=== PATIENT | female | born 1970 | race African-American/Black ===

== ENCOUNTER 2020-06-02 11:29 | Emergency (ER) | payer OTHER ==
[2020-06-02 11:41] VITALS: BMI 29.8
--- NOTE | 2020-06-02 12:29 | PDOC ---
History of Present Illness - General Chief Complaint: Back Pain Stated Complaint: BACK PAIN Time Seen by Provider: 06/02/20 11:49 History Source: Patient Exam Limitations: No Limitations - History of Present Illness Initial Comments: 06/02/20 12:27 49F PMH HTN presenting for evaluation of 2 days of acutely worsened low back pain. Pt has had this back pain of the same character for a year now but now more severe. Denies trauma, falls, heavy lifting, or strain. Denies numbness, tingling, weakness, loss of bowel or bladder continence. Denies chest pain, palpitations, lightheadedness, dizziness, headache, vision/hearing changes. Takes losartan and lasix for HTN, took today, but not completely compliant. 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 Spencer. MACHO. Past History - Medical History Allergies/Adverse Reactions: Allergies Allergy/AdvReac Type Severity Reaction Status Date / Time No Known Allergies Allergy Verified 06/02/20 11:36 Home Medications: Ambulatory Orders Losartan/Hydrochlorothiazide [Losartan-Hctz 50-12.5 mg Tab] 1 each PO DAILY 06/02/20 - Reproductive History Is Patient Now?: No - Psycho-Social/Smoking History Smoking History: Never smoked Review of Systems - Review of Systems Comments:: 06/03/20 09:23 CONSTITUTIONAL: Denies F / C HEENT: Denies headache, lightheadedness, dizziness, changes in vision / hearing, diplopia, blurry vision, sore throat, rhinorrhea RESP: Denies SOB, cough, orthopnea, HERNANDEZ CARD: Denies chest pain, palpitations GI: Denies N / V / D, abdominal pain, bloody stool, inability to tolerate PO : Denies dysuria, hematuria, frequency NEURO: Denies numbness, tingling, weakness MSK: + back pain (acute on chronic) SKIN: Denies rashes *Physical Exam - Vital Signs Last Vital Signs Temp Pulse Resp BP Pulse Ox 90 20 217/115 H 99 06/02/20 11:38 06/02/20 11:38 06/02/20 12:05 06/02/20 11:38 - Physical Exam 06/03/20 09:23 VS: BP noted to be 210s/110s b/l GEN: Well appearing, NAD, comfortable. AAOx3. HEENT: NC/AT, EOMI, PERRL, CN II-XII grossly intact. No facial asymmetry. Normal voice. Supple neck w/ FROM. CV: S1/S2, RRR, no m/r/g LUNG: CTAB, no wheezes, crackles, rales, rhonchi GI: Soft, ndnt, +BS, no guarding, no rebound MSK: symmetric UE BPs. No LE edema. No obvious deformities of all extremities. SKIN: Warm, dry, no rashes appreciated. PSYCH: Normal mood and affect. NEURO: Moving all extremities well. 5/5 UE and LE strength. symmetric sensation. ED Treatment Course - LABORATORY CBC & Chemistry Diagram: 06/02/20 11:59 06/02/20 11:59 - RADIOLOGY Radiology Studies Ordered: Category Date Time Status CTA CHEST ABD PEL W/WO CONT [CT] Stat CT Scan 06/02/20 12:24 Ordered Medical Decision Making - Medical Decision Making 06/03/20 09:23 49F w/ acute worsening of chronic low back pain and BPs of 210s/110s. Neuro intact. Pt w/o cardiopulm, abd, HEENT sx. likely exacerbation of chronic low back pain but must r/o AoD - labs - CTA r/o AoD - pain control - BP control 06/02/20 16:41 CTA neg for AoD labs reviewed patient feeling better s/p tylenol and lidocaine patch 06/02/20 18:15 EKG 12:29 HR 66 NSR, axia and intervals wnl, no TWI, no MEGHAN/D; p wave inversion V2? BP lowered to 180s/100s s/p amlodipine and hydralazine; patient remained asymptomatic and labs were reassuring discharged home w/ close PCP f/u the importance of blood pressure control was stressed; questions and concerns were addressed, and return precautions provided Discharge - Discharge Information Problems reviewed: Yes Clinical Impression/Diagnosis: Back pain, Hypertension Condition: Stable Disposition: HOME - Admission No - Follow up/Referral Referrals: Terri Spencer [Staff Physician] - 2 Days - Patient Discharge Instructions Patient Printed Discharge Instructions: DI for Low Back Pain, DI for High Blood Pressure Additional Instructions: Take tylenol and/or ibuprofen, as directed on the label, for pain control. Use [id number] lidocaine patches over the affected area for further pain control. Regular activity is important to helping your symptoms. Please continue taking your medications as prescribed. Your blood pressure was found to be very high today. Uncontrolled blood pressure can lead to very serious consequences. Speak to your primary care doctor regarding your blood pressure. Follow up with your primary care doctor in the next 3-5 days. Return to the Emergency Department if you experience new or worsening symptoms, including but not limited to: - chest pain, shortness of breath - severe or uncontrolled pain - loss of feeling or motor function - anything that concerns you - Post Discharge Activity
[2020-06-02] MEDS ORDERED: ACETAMINOPHEN 1000 MG/100 ML VIAL (NON FORMULARY) IVPB ONE (12:31)
[2020-06-02 12:36] LABS: BASO % 0.3 % (0-2.0); EOS % 1.5 % (0-4.5); HEMATOCRIT 39.8 % (32.4-45.2); HEMOGLOBIN 13.4 GM/dL (10.7-15.3); LYMPH % 31.6 % (8-40); MCH 30.3 pg (25.7-33.7); MCHC 33.7 g/dl (32.0-36.0); MEAN CELL VOLUME 89.8 fl (80-96); MEAN PLT VOLUME 9.6 fl (7.5-11.1); MONO % 8.6 % (3.8-10.2); PLATELET COUNT 252 K/MM3 (134-434); RBC 4.43 M/mm3 (3.60-5.2); RDW 14.2 % (11.6-15.6); WHITE BLOOD COUNT 6.6 K/mm3 (4.0-10.0)
[2020-06-02] MEDS ORDERED: ACETAMINOPHEN INJECTION 100 ML IVPB ONE (12:38)
[2020-06-02 13:06] LABS: ALBUMIN 4.2 g/dl (3.4-5.0); ALK PHOS 86 U/L (45-117); ANION GAP 5 MMOL/L (8-16); BILIRUBIN,TOTAL 0.4 mg/dL (0.2-1); BLOOD UREA NITROGEN 11.4 mg/dL (7-18); CALCIUM 9.5 mg/dL (8.5-10.1); CHLORIDE 105 mmol/L (98-107); CO2 30 mmol/L (21-32); CREATININE 0.9 mg/dL (0.55-1.3); GLUCOSE,RANDOM 116 mg/dL (74-106); POTASSIUM 3.4 mmol/L (3.5-5.1); SGOT/AST 29 U/L (15-37); SGPT/ALT 55 U/L (13-61); SODIUM 140 mmol/L (136-145); TOT PROT 7.8 g/dl (6.4-8.2)
[2020-06-02] MEDS ORDERED: LIDOCAINE 5% TOPICAL PATCH TP ONE (14:07)
[2020-06-02] MEDS ORDERED: LIDOCAINE 5% TOPICAL PATCH ONE (14:29)
--- NOTE | 2020-06-02 14:53 | PDOC ---
Documentation entered by Alejandrina Zuluaga SCRIBE, acting as scribe for Vero Abdi MD. Vero Abdi MD: This documentation has been prepared by the [employer] Ana, SCRIBE, under my direction and personally reviewed by me in its entirety. I confirm that the documentation accurately reflects all work, treatment, procedures, and medical decision making performed by me. Attending Attestation - Resident Resident Name: SanchoFaizan - ED Attending Attestation I have performed the following: I have examined & evaluated the patient, The case was reviewed & discussed with the resident, I agree w/resident's findings & plan, Exceptions are as noted - HPI HPI: 06/02/20 11:59 Pt presents to the ED complaining of atraumatic mid back pain that has been chronic for years but was suddenly worse today. Denies fever, urinary complaints, nausea or vomiting. Also has history of HTN, reports intermittent compliance with meds. Denies chest pain or shortness of breath. 06/02/20 14:44 Patient denies: weakness, lightheadedness, headaches, any vision changes, hearing issues, chest pain, palpitations, loss of continence, or any other related symptoms. Allergies: NKDA 06/02/20 14:44 - Physicial Exam PE: 06/02/20 14:26 Agree with resident exam. Patient is alert and oriented and in mild distress. Lungs are clear. CV: rrr no m/r/g. Abdomen: soft, non tender, non distended, without guarding or rebound. Back: no midline or paraspinal tenderness. No deformity. No CVA tenderness. 06/02/20 14:44 - Medical Decision Making 06/02/20 14:43 patient presented to the ED complaining of atramatic mid back pain that is chronic but suddenly got worse. Pain is most consistent with muscular pain, but given her extreme HTN and the sudden onset of her pain, dissection remains in the differential. Pain control given and emergent CT angio checked to screen for dissection, and is negative. Labs checked to evaluate for elevated Cr given severe HTN and are normal. Will give pain control and likely discharge home with instructions to follow up urgently with PCP. 06/02/20 14:46 Discharge - Discharge Information Problems reviewed: Yes Clinical Impression/Diagnosis: Back pain, Hypertension Condition: Stable Disposition: HOME - Follow up/Referral Referrals: Terri Spencer [Staff Physician] - 2 Days - Patient Discharge Instructions Patient Printed Discharge Instructions: DI for Low Back Pain, DI for High Blood Pressure Additional Instructions: Take tylenol and/or ibuprofen, as directed on the label, for pain control. Use [id number] lidocaine patches over the affected area for further pain control. Regular activity is important to helping your symptoms. Please continue taking your medications as prescribed. Your blood pressure was found to be very high today. Uncontrolled blood pressure can lead to very serious consequences. Speak to your primary care doctor regarding your blood pressure. Follow up with your primary care doctor in the next 3-5 days. Return to the Emergency Department if you experience new or worsening symptoms, including but not limited to: - chest pain, shortness of breath - severe or uncontrolled pain - loss of feeling or motor function - anything that concerns you - Post Discharge Activity
[2020-06-02] MEDS ORDERED: amLODIPine BESYLATE 10 MG TABLET (FP) PO ONE (15:45)
[2020-06-02] MEDS ORDERED: amLODIPine BESYLATE 5 MG TABLET (FP) ONE (15:49)
[2020-06-02] MEDS ORDERED: hydrALAZINE HCL 10 MG TABLET PO ONE (16:56)
[2020-06-02] MEDS ORDERED: hydrALAZINE HCL 25 MG TABLET (FP) PO ONE (17:31)
[2020-06-02] MEDS ORDERED: hydrALAZINE HCL 25 MG TABLET (FP) ONE (17:32)
[2020-06-02 18:05] VITALS: BP 180/111; PULSE 65; TEMP 98.5
[2020-06-02] MEDS ORDERED: LIDOCAINE PATCH REMOVAL MC SCH (22:00)
--- NOTE | 2020-06-04 11:03 | EKG ---
Test Reason : Blood Pressure : / mmHG Vent. Rate : 066 BPM Atrial Rate : 066 BPM P-R Int : 178 ms QRS Dur : 080 ms QT Int : 398 ms P-R-T Axes : 071 009 048 degrees QTc Int : 417 ms NORMAL SINUS RHYTHM POSSIBLE LEFT ATRIAL ENLARGEMENT BORDERLINE ECG NO PREVIOUS ECGS AVAILABLE Confirmed by ANABEL RIGGINS MD ([id number]) on 06/04/2020 11:03:08 AM Referred By: Confirmed By:ANABEL RIGGINS MD
== END 2020-06-02 18:42 | disposition home or self-care (01) ==
LOC: JER 11:29
PROC: 3E033NZ Introduction of Analgesics, Hypnotics, Sedatives into Peripheral Vein, Percutaneous Approach (ICD-10-PCS; principal; 2020-06-02)
DX: M54.9 Dorsalgia, unspecified (principal); I10 Essential (primary) hypertension
CPT/HCPCS: 36415; 71275-TC; 74174-TC; 80053; 82550; 82553; 84484; 85025; 93005; 93010; 99285-25; J0131

== ENCOUNTER 2020-08-22 11:38 | Emergency (ER) | payer OTHER ==
[2020-08-22 12:14] VITALS: BMI 30.7
[2020-08-22] MEDS ORDERED: MAG HYDROX/AL HYDROX/SIMETH 30 ML UNIT-DOSE CUP PO ONE (13:21)
[2020-08-22] MEDS ORDERED: ACETAMINOPHEN 1000 MG/100 ML VIAL (NON FORMULARY) IVPB ONE (13:22)
[2020-08-22] MEDS ORDERED: hydrALAZINE HCL 20 MG/ML VIAL IVPUSH ONE (13:35)
[2020-08-22] MEDS ORDERED: FAMOTIDINE 20 MG/50 ML IVPB 20 MG/50 ML MG IVPB ONE ×2 (13:45→14:08)
[2020-08-22 13:58] LABS: BASO % 0.4 % (0-2.0); EOS % 0.5 % (0-4.5); HEMATOCRIT 40.9 % (32.4-45.2); HEMOGLOBIN 13.4 GM/dL (10.7-15.3); MCH 29.5 pg (25.7-33.7); MCHC 32.7 g/dl (32.0-36.0); MEAN CELL VOLUME 90.1 fl (80-96); MEAN PLT VOLUME 8.8 fl (7.5-11.1); NEUT % 76.1 % (42.8-82.8); PLATELET COUNT 304 K/MM3 (134-434); RBC 4.53 M/mm3 (3.60-5.2)
[2020-08-22] MEDS ORDERED: MAG HYDROX/AL HYDROX/SIMETH 30 ML UNIT-DOSE CUP ONE (14:07)
[2020-08-22] MEDS ORDERED: ACETAMINOPHEN INJECTION 100 ML IVPB ONE (14:07)
[2020-08-22] MEDS ORDERED: hydrALAZINE HCL 20 MG/ML VIAL ONE (14:09)
[2020-08-22 14:19] LABS: CHLORIDE 103 mmol/L (98-107); POTASSIUM 3.8 mmol/L (3.5-5.1); SODIUM 138 mmol/L (136-145)
[2020-08-22 14:22] LABS: ALBUMIN 4.5 g/dl (3.4-5.0); ANION GAP 6 MMOL/L (8-16); CALCIUM 10.1 mg/dL (8.5-10.1); CO2 29 mmol/L (21-32); LIPASE 210 U/L (73-393)
[2020-08-22 14:23] LABS: BLOOD UREA NITROGEN 8.5 mg/dL (7-18); GLUCOSE,RANDOM 130 mg/dL (74-106)
[2020-08-22 14:25] LABS: SGOT/AST 17 U/L (15-37); SGPT/ALT 35 U/L (13-61)
[2020-08-22 14:27] LABS: BILIRUBIN,TOTAL 0.5 mg/dL (0.2-1); TOT PROT 7.8 g/dl (6.4-8.2)
[2020-08-22 14:28] LABS: ALK PHOS 88 U/L (45-117)
[2020-08-22] MEDS ORDERED: SODIUM CHLORIDE 0.9% 500 ML INFUS.BAG IV ONE (14:38)
[2020-08-22 15:02] LABS: PH,URINE 7.5 (5.0-8.0); URINE APPEARANCE CLEAR; URINE BILIRUBIN NEGATIVE (NEGATIVE); URINE COLOR YELLOW; URINE GLUCOSE (UA) NEGATIVE (NEGATIVE); URINE KETONE NEGATIVE (NEGATIVE); URINE LEUK ESTERASE NEGATIVE (NEGATIVE); URINE NITRITE NEGATIVE (NEGATIVE); URINE PROTEIN NEGATIVE (NEGATIVE); URINE UROBILINOGEN 0.2 mg/dL (0.2-1.0)
[2020-08-22 17:27] VITALS: TEMP 98
[2020-08-22 18:19] VITALS: BP 180/125; PULSE 97
== END 2020-08-22 18:22 | disposition home or self-care (01) ==
LOC: JER 11:38
PROC: 3E0333Z Introduction of Anti-inflammatory into Peripheral Vein, Percutaneous Approach (ICD-10-PCS; principal; 2020-08-22)
PROC: 3E033GC Introduction of Other Therapeutic Substance into Peripheral Vein, Percutaneous Approach (ICD-10-PCS; 2020-08-22)
PROC: 3E033GC Introduction of Other Therapeutic Substance into Peripheral Vein, Percutaneous Approach (ICD-10-PCS; 2020-08-22)
DX: R10.13 Epigastric pain (principal); I10 Essential (primary) hypertension
CPT/HCPCS: 36415; 80053; 81003; 83605; 83690; 84484; 85025; 85379; 87086; 93005; 93010; 99284-25; J0131

== ENCOUNTER 2021-06-01 07:52 | Emergency (ER) | payer OTHER ==
[2021-06-01 07:59] VITALS: BMI 32.3
[2021-06-01] MEDS ORDERED: MAG HYDROX/AL HYDROX/SIMETH 30 ML UNIT-DOSE CUP PO ONE (08:58)
[2021-06-01] MEDS ORDERED: FAMOTIDINE 20 MG TABLET PO ONE (08:58)
[2021-06-01] MEDS ORDERED: diphenhydrAMINE HCL 25 MG CAPSULE (FP) PO ONE ×2 (08:58→09:26)
[2021-06-01] MEDS ORDERED: ACETAMINOPHEN 500 MG TABLET (FP) PO ONE (09:21)
[2021-06-01] MEDS ORDERED: MAG HYDROX/AL HYDROX/SIMETH 30 ML UNIT-DOSE CUP ONE (09:26)
[2021-06-01] MEDS ORDERED: FAMOTIDINE 20 MG TABLET ONE (09:27)
[2021-06-01] MEDS ORDERED: ACETAMINOPHEN 500 MG TABLET (FP) ONE ×2 (09:29→09:36)
[2021-06-01] MEDS ORDERED: LIDOCAINE 5% TOPICAL PATCH TP ONE (09:43)
[2021-06-01] MEDS ORDERED: LIDOCAINE 5% TOPICAL PATCH ONE (10:02)
[2021-06-01 10:19] LABS: BASO % 0.3 % (0-2.0); HEMOGLOBIN 13.4 GM/dL (10.7-15.3); LYMPH % 18.9 % (8-40); MCH 29.6 pg (25.7-33.7); MCHC 34.3 g/dl (32.0-36.0); MEAN CELL VOLUME 86.4 fl (80-96); MONO % 7.1 % (3.8-10.2); NEUT % 72.7 % (42.8-82.8); PLATELET COUNT 274 10^3/uL (134-434); RBC 4.51 M/mm3 (3.60-5.2); RDW 14.6 % (11.6-15.6); URINE APPEARANCE CLEAR; URINE BILIRUBIN NEGATIVE (NEGATIVE); URINE COLOR YELLOW; URINE GLUCOSE (UA) NEGATIVE (NEGATIVE); URINE KETONE NEGATIVE (NEGATIVE); URINE LEUK ESTERASE NEGATIVE (NEGATIVE); URINE NITRITE NEGATIVE (NEGATIVE); URINE PROTEIN NEGATIVE (NEGATIVE); URINE UROBILINOGEN 0.2 mg/dL (0.2-1.0); WHITE BLOOD COUNT 6.1 K/mm3 (4.0-10.0)
[2021-06-01 10:42] LABS: CHLORIDE 103 mmol/L (98-107); SODIUM 137 mmol/L (136-145)
[2021-06-01 10:45] LABS: ALBUMIN 4.2 g/dl (3.4-5.0); ANION GAP 5 MMOL/L (8-16); BLOOD UREA NITROGEN 13.1 mg/dL (7-18); CO2 29 mmol/L (21-32); GLUCOSE,RANDOM 93 mg/dL (74-106); LIPASE 147 U/L (73-393)
[2021-06-01 10:48] LABS: CREATININE 0.9 mg/dL (0.55-1.3); SGOT/AST 26 U/L (15-37); SGPT/ALT 40 U/L (13-61)
[2021-06-01 10:49] LABS: BILIRUBIN,TOTAL 0.3 mg/dL (0.2-1); TOT PROT 8.1 g/dl (6.4-8.2)
[2021-06-01 10:51] LABS: ALK PHOS 88 U/L (45-117)
[2021-06-01] MEDS ORDERED: amLODIPine BESYLATE 10 MG TABLET (FP) PO ONE (16:59)
[2021-06-01] MEDS ORDERED: amLODIPine BESYLATE 2.5 MG TABLET (FP) ONE (17:01)
[2021-06-01 17:05] VITALS: BP 191/106; PULSE 75; TEMP 98.7
[2021-06-01] MEDS ORDERED: LIDOCAINE PATCH REMOVAL MC SCH (22:00)
== END 2021-06-01 17:11 | disposition home or self-care (01) ==
LOC: JER 07:52
DX: R10.9 Unspecified abdominal pain (principal)
CPT/HCPCS: 36415; 71045-TC-FY; 74177-TC; 80053; 81003; 83690; 84484; 84703; 85025; 87086; 93005; 93010; 99285-25

== ENCOUNTER 2021-11-20 06:43 | Emergency (ER) | payer OTHER ==
[2021-11-20 06:56] VITALS: TEMP 97.7; BMI 32.3
[2021-11-20] MEDS ORDERED: ACETAMINOPHEN 1000 MG/100 ML BAG IVPB ONE (07:26)
[2021-11-20] MEDS ORDERED: PANTOPRAZOLE SODIUM 40 MG in SODIUM CHLORIDE 100 ML IVPB ONE (07:26)
[2021-11-20] MEDS ORDERED: ACETAMINOPHEN INJECTION 100 ML IVPB ONE (07:45)
[2021-11-20] MEDS ORDERED: PANTOPRAZOLE SODIUM 40 MG/100 ML BAG IVPB ONE (07:45)
[2021-11-20 07:52] LABS: BASO % 0.2 % (0-2.0); EOS % 1.2 % (0-4.5); HEMATOCRIT 40.7 % (32.4-45.2); HEMOGLOBIN 13.4 GM/dL (10.7-15.3); LYMPH % 19.7 % (8-40); MCH 28.6 pg (25.7-33.7); MCHC 32.9 g/dl (32.0-36.0); MEAN CELL VOLUME 86.9 fl (80-96); MONO % 5.7 % (3.8-10.2); NEUT % 73.2 % (42.8-82.8); PLATELET COUNT 271 10^3/uL (134-434); RBC 4.68 M/mm3 (3.60-5.2); RDW 15.4 % (11.6-15.6); WHITE BLOOD COUNT 6.1 K/mm3 (4.0-10.0)
[2021-11-20 08:07] LABS: CHLORIDE 106 mmol/L (98-107); SODIUM 140 mmol/L (136-145)
[2021-11-20 08:09] LABS: CALCIUM 9.2 mg/dL (8.5-10.1)
[2021-11-20 08:10] LABS: ALBUMIN 3.9 g/dl (3.4-5.0); ANION GAP 6 MMOL/L (8-16); BLOOD UREA NITROGEN 8.3 mg/dL (7-18); CO2 28 mmol/L (21-32); GLUCOSE,RANDOM 98 mg/dL (74-106); LIPASE 163 U/L (73-393)
[2021-11-20 08:13] LABS: CREATININE 0.9 mg/dL (0.55-1.3); SGOT/AST 26 U/L (15-37); SGPT/ALT 38 U/L (13-61)
[2021-11-20 08:14] LABS: BILIRUBIN,TOTAL 0.4 mg/dL (0.2-1); TOT PROT 7.5 g/dl (6.4-8.2)
[2021-11-20 08:15] LABS: ALK PHOS 95 U/L (45-117)
[2021-11-20 10:27] LABS: URINE APPEARANCE CLEAR; URINE BILIRUBIN NEGATIVE (NEGATIVE); URINE COLOR YELLOW; URINE GLUCOSE (UA) NEGATIVE (NEGATIVE); URINE KETONE NEGATIVE (NEGATIVE); URINE LEUK ESTERASE NEGATIVE (NEGATIVE); URINE NITRITE NEGATIVE (NEGATIVE); URINE PROTEIN NEGATIVE (NEGATIVE); URINE UROBILINOGEN 0.2 mg/dL (0.2-1.0)
[2021-11-20] MEDS ORDERED: morphine CARPU-JECT 4 MG/1 ML DISP.SYRIN IVPUSH ONE (10:31)
[2021-11-20] MEDS ORDERED: MAG HYDROX/AL HYDROX/SIMETH 30 ML UNIT-DOSE CUP PO ONE (10:31)
[2021-11-20] MEDS ORDERED: morphine SULFATE 4 MG/ML VIAL ONE (10:38)
[2021-11-20] MEDS ORDERED: MAG HYDROX/AL HYDROX/SIMETH 30 ML UNIT-DOSE CUP ONE (10:38)
[2021-11-20 10:43] LABS: INR 0.99 (0.83-1.09); PROTHROMBIN TIME (PATIENT) 11.4 SEC (9.7-13.0)
[2021-11-20 10:46] LABS: ACTIVATED PTT 29.2 SECONDS (25.2-36.5)
[2021-11-20] MEDS ORDERED: LOSARTAN 50MG/HCTZ 12.5MG 1 TAB PO ONE (13:42)
[2021-11-20] MEDS ORDERED: amLODIPine BESYLATE 10 MG TABLET (FP) PO ONE (13:42)
[2021-11-20] MEDS ORDERED: amLODIPine BESYLATE 10 MG TABLET (FP) ONE (13:49)
[2021-11-20 14:36] VITALS: BP 180/83; PULSE 76
== END 2021-11-20 14:58 | disposition home or self-care (01) ==
LOC: JER 06:43
PROC: 3E033GC Introduction of Other Therapeutic Substance into Peripheral Vein, Percutaneous Approach (ICD-10-PCS; principal; 2021-11-20)
DX: R07.9 Chest pain, unspecified (principal); R10.13 Epigastric pain; I10 Essential (primary) hypertension
CPT/HCPCS: 36415; 71046-TC-FY; 71275-TC; 74174-TC; 76700-TC; 80053; 81003; 82550; 82553; 83690; 84484; 85025; 85610; 85730; 93005; 93010; 99291; Q9967